=== PATIENT | female | born 1975 | race Two or more races ===

== ENCOUNTER 2022-01-04 08:31 | Outpatient (CLI) | payer OTHER | END 2022-01-04 09:26 | disposition home or self-care (01) | LOC: MRI 08:31 | DX: G45.9 Transient cerebral ischemic attack, unspecified (principal); M50.03 Cervical disc disorder with myelopathy, cervicothoracic region; M50.13 Cervical disc disorder with radiculopathy, cervicothoracic region; M17.12 Unilateral primary osteoarthritis, left knee; M25.562 Pain in left knee; R29.898 Other symptoms and signs involving the musculoskeletal system; M54.12 Radiculopathy, cervical region | CPT/HCPCS: 72141 ==